=== PATIENT | male | born 1955 | race Caucasian/White ===

== ENCOUNTER 2020-04-07 00:41 | Outpatient (CLI) | payer MEDICARE, OTHER, SELFPAY ==
[2020-04-07 16:46] LABS: SARS-CoV-2 RNA PCR Negative
== END 2020-04-07 00:42 | disposition home or self-care (01) ==
LOC: ANHCOVIDDT 00:41
PROVIDERS: PCP Family Medicine; Visit Provider Internal Medicine Gastroenterology
DX: Z01.818 Encounter for other preprocedural examination (principal); Z11.59 Encounter for screening for other viral diseases; R19.5 Other fecal abnormalities
CPT/HCPCS: 87635; C9803; U0003

== ENCOUNTER 2020-04-10 01:05 | Day surgery (SDC) | payer MEDICARE, OTHER, SELFPAY ==
[2020-04-03 13:06] VITALS: BMI 22.4
[2020-04-10] MEDS: LACTATED RINGERS 1,000 ML 150 ML IV CONT (07:39)
[2020-04-10 07:40] VITALS: BMI 22.6
[2020-04-10 07:42] VITALS: BP 109/68; PULSE 77; RESP 16; TEMP 37; O2SAT 97
--- NOTE | 2020-04-10 07:58 | WPDANESEPPF ---
Anes - Initial Pre Proc Eval Procedure: Operation Date: 04/10/20 08:30 Proposed Procedures p Screening Colonoscopy - Nadir Little MD Date/Time: 04/10/20 07:58 Surgeon: Nadir Little MD Pre Op Diagnosis: Neoplasm Screening Patient Data Age: 64 Gender: M Height: 5 ft 7 in Weight: 65.5 kg Last Vital Signs Temp 37.0 C 04/10/20 07:42 Pulse 77 04/10/20 07:42 Resp 16 04/10/20 07:42 BP 109/68 04/10/20 07:42 Pulse Ox 97 04/10/20 07:42 Allergies Allergy/AdvReac Type Severity Reaction Status Date / Time No Known Allergies Allergy Unknown Verified 04/10/20 07:23 Home Medications Medication Instructions Recorded Confirmed Type lithium carbonate 300 mg capsule 300 mg PO BID 01/27/20 04/10/20 History lamotrigine 200 mg PO DAILY 04/03/20 04/10/20 History naproxen 500 mg PO BID 04/03/20 04/10/20 History Patient hx anesthesia problems: none Family hx anesthesia problems: none PMFSH Past Medical History Medical History Afib Alcoholism Bipolar depression Hyperthyroidism Family History Family History Other Cerebrovascular accident Family history of obesity Social History Social History Smoking status: Never smoker Second hand tobacco smoke exposure: Yes Alcohol intake: current Anes - Eval Final PreProcedure Day of Procedure 04/10/20 07:58 Informed Consent: The patient's anesthetic plan and its attendant risks and benefits were discussed with the patient/family/POA. Questions were solicited and answers provided to the satisfaction of the patient/family/POA.
--- NOTE | 2020-04-10 08:26 | PM.HPGS ---
History of Present Illness History of Present Illness Consent: Risks, benefits, and alternatives have been discussed and questions answered. Patient agrees to proceed with procedure. Chief complaint: Neoplasm Screening Narrative: Mychal Mckeon is a 64 year old male with positive cologuard, never had a colonoscopy Review of Systems Constitutional: Constitutional: Denies headache(s) and Denies weakness Eyes: Eyes: Denies blurry vision ENT: Reports Normal hearing present, Denies headache(s) and Denies neck pain Cardiovascular: Cardiovascular: Denies chest pain and Denies dyspnea Respiratory: Respiratory: Denies dyspnea Gastrointestinal: Gastrointestinal: Reports no additional gastrointestinal complaints Genitourinary: Genitourinary: Denies dysuria Musculoskeletal: Musculoskeletal: Denies neck pain Integumentary/Breasts: Skin/Breast: Denies dry skin Neurologic: Reports Normal hearing present, Denies headache(s) and Denies weakness Psychiatric: Psychiatric: Denies anxiety Endocrine: Endocrine: Denies change in body appearance Hematologic/Lymphatic: Hematologic/Lymphatic: Denies easy bleeding Allergic/Immunologic: Allergic/Immunologic: Denies urticaria PMFSH Past Medical History Medical History Afib Alcoholism Bipolar depression Hyperthyroidism Family History Family History Other Cerebrovascular accident Family history of obesity Social History Social History Smoking status: Never smoker Second hand tobacco smoke exposure: Yes Alcohol intake: current Meds Home Medications and Allergies Home Medications Medication Instructions Recorded Confirmed Type lithium carbonate 300 mg capsule 300 mg PO BID 01/27/20 04/10/20 History lamotrigine 200 mg PO DAILY 04/03/20 04/10/20 History naproxen 500 mg PO BID 04/03/20 04/10/20 History Allergies Allergy/AdvReac Type Severity Reaction Status Date / Time No Known Allergies Allergy Unknown Verified 04/10/20 07:23 Vital Signs Vital Signs - 24 hr 04/10/20 07:42 Temperature 98.6 F Pulse Rate 77 Respiratory Rate 16 Blood Pressure 109/68 Pulse Oximetry 97 Exam Const: General: comfortable and no acute distress HENMT: General nose exam: Normal nares present Eyes: General: appearance normal, both eyes and all related structures Neck: Neck: no JVD Resp: Auscultation: clear to auscultation bilaterally Cardio: Rate: regular rate Rhythm: regular rhythm GI: Inspection: non-distended GI Palp: Yes Soft to palpation Skin: General skin exam: normal color Neuro: General: gait normal Speech: normal speech Extrem: General: normal to inspection Psych: Mental Status: mental status grossly normal Assessment and Plan Assessment and plan (1) Positive colorectal cancer screening using Cologuard test: Code(s): R19.5 - Other fecal abnormalities Status: Acute Assessment and Plan: will proceed with colonoscopy (2) Afib: Code(s): I48.91 - Unspecified atrial fibrillation Status: Acute
[2020-04-10 09:05] VITALS: BP 87/52; PULSE 66; RESP 9; O2SAT 95
[2020-04-10 09:15] VITALS: BP 90/54; PULSE 61; RESP 16; O2SAT 99
[2020-04-10 09:25] VITALS: BP 95/53; PULSE 72; RESP 12; O2SAT 99
== END 2020-04-10 09:45 | disposition home or self-care (01) ==
PROVIDERS: PCP Family Medicine; Visit Provider Internal Medicine Gastroenterology
PROC: 0DJD8ZZ Inspection of Lower Intestinal Tract, Via Natural or Artificial Opening Endoscopic (ICD-10-PCS; CPT 45378; principal; 2020-04-10 08:30)
DX: R19.5 Other fecal abnormalities (principal); K63.5 Polyp of colon; K57.30 Diverticulosis of large intestine without perforation or abscess without bleeding; K64.8 Other hemorrhoids; I48.91 Unspecified atrial fibrillation; E05.90 Thyrotoxicosis, unspecified without thyrotoxic crisis or storm
CPT/HCPCS: 45385; 45381; 88305; 88342; J2001; J2704; J7120

== ENCOUNTER 2020-04-26 15:08 | Outpatient (CLI) | payer MEDICARE, OTHER, SELFPAY ==
--- NOTE | ~2020-04-26 | US_ITS ---
EXAMINATION: US thyroid DATE: 04/26/2020 15:47 INDICATION: Nontoxic goiter. TECHNIQUE: Multiple ultrasound images of the thyroid were obtained. COMPARISON: None. FINDINGS: The right thyroid lobe measures 3.8 x 2.0 x 2.1 cm. The left thyroid lobe measures 4.5 x 1.5 x 1.9 c m. There is normal echotexture and echogenicity throughout the thyroid gland. No discrete nodules id entified. Normal vascular flow is present. IMPRESSION: 1. Normal thyroid. Reviewed, dictated and finalized at location A. IMPRESSION: 1. Normal thyroid.
== END 2020-04-26 15:09 | disposition home or self-care (01) ==
PROVIDERS: PCP Family Medicine; Visit Provider Internal Medicine Endocrinology, Diabetes & Metabolism
DX: E04.9 Nontoxic goiter, unspecified (principal)
CPT/HCPCS: 76536

== ENCOUNTER 2020-09-11 08:07 | Emergency (ER) | payer MEDICARE, OTHER, SELFPAY ==
--- NOTE | ~2020-09-11 | XR_ITS ---
EXAMINATION: XR abdomen/kub 1V DATE: 09/11/2020 08:51 INDICATION: Abdominal pain. Nausea and vomiting. TECHNIQUE: A supine view of the abdomen was obtained. COMPARISON: None. FINDINGS: There are no dilated loops of bowel. There is a paucity of stool in the colon. Calcificatio ns in the pelvis are likely phleboliths. There is a pacer wire in right ventricle of the heart. IMPRESSION: 1. Normal bowel gas pattern. Reviewed, dictated and finalized at location A.
[2020-09-11 08:14] VITALS: BP 140/81; PULSE 115; RESP 16; TEMP 36.9; O2SAT 100
--- NOTE | 2020-09-11 08:19 | ED.GENADULT ---
HPI - General Adult General Chief complaint: Nausea/Vomiting/Diarrhea Stated complaint: abdominal pain/vomiting Time Seen by Provider: 09/11/20 08:19 Source: patient and RN notes reviewed Mode of arrival: ambulatory Limitations: no limitations History of Present Illness HPI narrative: 65-year-old male presents with complaints of diffused abdomen pain with nausea and vomiting for the past 2 days. Mychal says he started vomiting Thursday09/08/20 morning after eating a donut and drinking day old apple cider that was left out, 3-4 emesis daily. Last emesis episode on 09/10/20 at 20:00 all episodes without blood. No treatment. Says he has decreased his po intake because he does not want to vomit. No significant genital pain. No genital discharge. No concerns for STDs. No fever or chills. No diarrhea. No flank pain. Exacerbating factors consist of having eating and drinking. Denies dysuria, hematuria, and genital bleeding. No blood in stool or constipation. Last BM was 1-2 days ago and normal. Urine output with in normal limits. The patient reports he have not been diagnosed with COVID-19. The patient reports he is not waiting for the results of a COVID-19 lab test. The patient reports he do not have weakness or fatigue. The patient reports he do not have a new or worsening cough or shortness of breath. Denies chest pain. The patient reports he do not have any rhinorrhea, congestion, loss of taste, sore throat, and diarrhea. Denies recent traveling. Denies concerns for COVID-19 or exposures been home with limited outdoor exposure except for essential household needs and return home. At this time, patient is not suspected of having COVID-19. Some parts of this dictation were generated by voice recognition software and may contain typographical and/or grammatical inaccuracies. Related Data Home Medications Medication Instructions Recorded Confirmed lithium carbonate 300 mg capsule 300 mg PO BID 01/27/20 08/22/20 lamotrigine 200 mg PO DAILY 04/03/20 08/22/20 Allergies Allergy/AdvReac Type Severity Reaction Status Date / Time No Known Allergies Allergy Unknown Verified 08/22/20 14:45 Review of Systems Review of Systems: Narrative: CONSTITUTIONAL: Denies fever, chills, sweats. EYES: Denies visual changes, redness, discharge. ENT: Denies rhinorrhea, congestion, sore throat, otalgia. CARDIOVASCULAR: Denies chest pain, palpitations, edema. RESPIRATORY: Denies dyspnea, wheezing, cough. GASTROINTESTINAL: Complains of diffused abdomen pain, vomiting, nausea, and decrease appetite. Denies diarrhea. GENITOURINARY: Denies dysuria, hematuria, abnormal discharge. SKIN: Denies rash or itching. MUSCULOSKELETAL: Denies acute back pain, joint pain, or myalgia. NEUROLOGIC: Denies numbness or focal weakness. PSYCHIATRIC: Denies anxiety or depression. All systems reviewed & are unremarkable except as noted in HPI and below. 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 There is relevant patient's past medical history pertinent to the
[2020-09-11] MEDS: ONDANSETRON INJ 4 MG/2 ML VIAL IM (08:42)
--- NOTE | 2020-09-11 09:27 | PC.NURSE ---
Pulse 84 at discharged.
== END 2020-09-11 09:26 | disposition home or self-care (01) ==
PROVIDERS: Emergency Provider Nurse Practitioner Family; PCP Family Medicine
DX: K52.9 Noninfective gastroenteritis and colitis, unspecified (principal); I48.91 Unspecified atrial fibrillation; F31.9 Bipolar disorder, unspecified; E05.90 Thyrotoxicosis, unspecified without thyrotoxic crisis or storm; Z95.0 Presence of cardiac pacemaker
CPT/HCPCS: 74018; 81003; 96372; 99213; G0463; J2405

== ENCOUNTER → 2020-10-02 10:32 | Outpatient (CLI) | payer MEDICARE, OTHER, SELFPAY ==
--- NOTE | ~2020-10-02 | XR_ITS ---
EXAMINATION: XR lumbar spine 2-3V EXAM DATE: 10/02/2020 11:02 INDICATION: M54.9 - Dorsalgia, unspecified, nkt . TECHNIQUE: Lumber spine frontal, lateral, lateral L5-S1 projections for interpretation. There is no prior study for comparison. FINDINGS: There is mild to moderate lumbar dextroscoliosis, mild to moderate disc disease L3-S1, mild at the up per lumbar levels. The vertebral bodies are aligned in the AP dimension. Mild to moderate lumbar face t arthropathy. Sacrum, sacroiliac joints, sacral arcuate lines are intact. Paraspinal soft tissue is unremarkable. Cardiac pacemaker lead. IMPRESSION: 1. Mild to moderate lumbar dextroscoliosis. 2. Mild to moderate spondylosis. Reviewed, dictated and finalized at location A. NESS TRANSFORMATION MANAGER
== END ==
PROVIDERS: PCP Family Medicine; Visit Provider Physician Assistant
DX: M47.896 Other spondylosis, lumbar region (principal)
CPT/HCPCS: 72100

== ENCOUNTER 2020-10-31 09:36 | Emergency (ER) | payer MEDICARE, OTHER, SELFPAY ==
--- NOTE | ~2020-10-31 | XR_ITS ---
EXAMINATION: XR chest 1V DATE: 10/31/2020 10:50 INDICATION: Loss of balance. TECHNIQUE: A single frontal view of the chest was obtained. COMPARISON: Chest 2 views 04/29/2014 FINDINGS: Calcified pulmonary nodules are consistent with old granulomatous disease. No pleural effus ion or pneumothorax. The heart size is normal. There is a left chest wall pacer with leads in the rig ht atrium and right ventricle. IMPRESSION: 1. No acute cardiopulmonary disease. Reviewed, dictated and finalized at location A. SERVER
--- NOTE | ~2020-10-31 | CT_ITS ---
EXAMINATION: CT cervical spine wo con DATE: 10/31/2020 10:46 INDICATION: Fall. Head and neck injury. TECHNIQUE: Computed tomography (CT) of the cervical spine was performed without intravenous contrast. Automated exposure control and iterative reconstruction technique were employed. Exam dose: 281.85 mGy-cm total exam DLP. COMPARISON: 07/05/2018 cervical spine FINDINGS: C1 and C2 are normally aligned and the odontoid process is intact. No fracture or dislocati on or locked facet or prevertebral soft tissue swelling. There is minimal anterolisthesis at C4-5. There is moderately severe degenerative disc disease at C4- 5, C5-C6. There is moderate degenerative disc disease at C6-7. There is degenerative change at the apophyseal joints throughout most of the cervical spine as well a s uncovertebral joint spurring, particularly at C4-5 and C5-6 bilaterally.. IMPRESSION: Degenerative changes; no fracture or dislocation Reviewed, dictated and finalized at Location A. Reviewed, dictated and finalized at location B. NG CAGE CASHIER
--- NOTE | ~2020-10-31 | CT_ITS ---
EXAMINATION: CT brain wo con DATE: 10/31/2020 10:46 INDICATION: Fall. Head injury. TECHNIQUE: Computed tomography (CT) of the head was performed without intravenous contrast. The mA wa s adjusted according to patient size. Iterative reconstruction technique was employed. Exam dose: 60 5.33 mGy-cm total exam DLP. COMPARISON: 07/19/2018 CT brain FINDINGS: Bilateral carotid siphon internal carotid artery calcification. There is nonspecific dimini shed attenuation of the cerebral white matter, likely due to chronic small vessel ischemic changes. No intracranial mass lesion or hemorrhage or cerebrovascular accident, midline shift or mass effect i s detected. No subdural or epidural hematoma. No fracture or bone destruction of the cranial vault. Included paranasal sinuses and mastoid air cell s are unremarkable. IMPRESSION: Cerebral atherosclerosis and chronic small vessel ischemic changes of the cerebral white matter No acute intracranial finding or skull fracture Reviewed, dictated and finalized at Location A. Reviewed, dictated and finalized at location B. SPORTATION COORDINATOR
[2020-10-31 10:00] VITALS: BP 112/69; PULSE 66; RESP 18; O2SAT 96
[2020-10-31 10:08] VITALS: BP 142/73; PULSE 107; RESP 18; TEMP 36.5; O2SAT 100
[2020-10-31 10:30] VITALS: BP 108/73; PULSE 59; RESP 18; O2SAT 97
[2020-10-31 11:00] VITALS: BP 114/86; PULSE 65; RESP 18; O2SAT 97
[2020-10-31 11:07] LABS: Basophils Absolute Auto 0.1 K/mm3 (0.0-0.1); Basophils Percent Auto 0.6 % (0.2-1.2); Eosinophils Absolute Auto 0.3 K/mm3 (0-0.3); Eosinophils Percent Auto 3.8 % (0-4.4); Hematocrit 40.1 % (42.0-52.0); Hemoglobin 12.9 g/dL (14.0-18.0); Immature Granulocyte Absolute 0.02 K/mm3 (0.00-0.031); Immature Granulocyte Percent A 0.3 % (0-0.5); Lymphocytes Absolute Auto 0.95 K/mm3 (0.9-3.2); Lymphocytes Percent Auto 11.9 % (18.3-44.2); Mean Corpuscular HGB Conc 32.2 g/dl (32-36); Mean Corpuscular Hemoglobin 29.5 pg (26-34); Mean Corpuscular Volume 91.6 fl (80-100); Mean Platelet Volume 10.4 fl (7.4-10.4); Monocytes Absolute Auto 0.5 K/mm3 (0.1-0.6); Monocytes Percent Auto 5.6 % (2.6-8.5); Neutrophils Absolute Auto 6.2 K/mm3 (1.3-6.7); Neutrophils Percent Auto 77.8 % (45.5-73.1); Platelet Count Result 272 k/mm3 (150-375); Red Blood Count 4.38 M/mm3 (4.6-6.20); Red Cell Distribution Width 13.3 % (11.5-14.5)
[2020-10-31 11:22] LABS: Alanine Aminotransferase 17 U/L (4-50); Alkaline Phosphatase 73 U/L (38-126); Anion Gap 4 mmol/L (8-16); Aspartate Amino Transferase 21 U/L (17-59); Bilirubin,Total 0.4 mg/dL (0.2-1.3); Blood Urea Nitrogen 18 mg/dL (9-20); Calcium 9.4 mg/dL (8.4-10.2); Carbon Dioxide 31 mmol/L (22-30); Chloride 104 mmol/L (98-107); Estimated CRCL calculation 65 ml/min; Estimated Glomerular Filt Rate > 60; Glucose 100 mg/dL (75-110); Sodium 139 mmol/L (137-145)
--- NOTE | 2020-10-31 11:31 | PC.NURSE ---
Addendum entered by Gianluca Carvajal RN 10/31/20 11:32: Pt and told to call for assistance prior to getting out of bed. Original Note: Pt stands to void. Per Tyler, maintenance service technician, pt was unsteady on his feet when he got out of bed.
[2020-10-31 11:37] LABS: Add Urine Microscopic? NO; Appearance Urine Clear (Clear); Bilirubin Urine Negative (Negative); Blood Urine Negative (Negative); Color Urine Straw (Yellow); Glucose Urine UA Negative (Negative); Ketones Urine Negative (Negative); Leukocyte Esterase Ur Negative LEU/UL (Negative); Nitrate Urine Negative (Negative); Protein Urine Negative (Negative); RBC Urine 0-2 /hpf (0-2); Specific Grav Ur 1.012 (1.001-1.035); Urobilinogen Urine Negative mg/dL (<2.0); WBC Urine 0-3 /hpf
[2020-10-31 11:40] VITALS: BP 107/71; PULSE 61; RESP 18; O2SAT 99
[2020-10-31 12:20] VITALS: BP 117/69; PULSE 61; RESP 16; O2SAT 99
--- NOTE | 2020-10-31 13:01 | ED.GENADULT ---
HPI - General Adult General Chief complaint: Unspecified Stated complaint: head injury/fall Time Seen by Provider: 10/31/20 09:58 Source: patient and family () Mode of arrival: ambulatory Limitations: no limitations History of Present Illness HPI narrative: Patient with history of right-sided vestibular neuroma resents with chief complaint of lacerations to the right side of his head after falling and hitting it on the cement. Patient states that he has had balance issues for many years and a year and a half ago the vestibular neuroma was gamma ray but over the past 2 months or so he has noticed increased balance issues especially when he plays basketball. Patient states that he has an appointment with his neurologist on November 19 but his became concerned after he fell today and wanted him evaluated in the emergency department. He denies any loss of consciousness, changes in vision or hearing, headache, nausea, vomiting, unilateral weakness or speech changes. He states that he has not contacted his primary care or neurologist to inform them that his balance has worsened over the past 2 or so months. Patient states that his primary care is Dr. Fina Abbott however he cannot recall the name of his neurologist at this time. Related Data Home Medications Medication Instructions Recorded Confirmed lamotrigine 200 mg PO DAILY 04/03/20 08/22/20 lithium carbonate 300 mg capsule 600 mg PO BID cap 09/14/20 Allergies Allergy/AdvReac Type Severity Reaction Status Date / Time No Known Allergies Allergy Unknown Verified 09/14/20 15:51 Review of Systems Review of Systems: Narrative: CONSTITUTIONAL: Denies fever, chills, or sweats. EYES: Denies visual changes, redness, or discharge. ENT: Denies rhinorrhea, congestion, sore throat, or otalgia. CARDIOVASCULAR: Denies chest pain, palpitations, or edema. RESPIRATORY: Denies cough or dyspnea. GASTROINTESTINAL: Denies abdominal pain, nausea, vomiting, or diarrhea. GENITOURINARY: Denies dysuria or hematuria. SKIN: Reports laceration and abrasions denies rash or itching. MUSCULOSKELETAL: Denies back pain, joint pain, or myalgia. NEUROLOGIC: Reports balance issues denies headache, numbness, dizziness, or weakness. PSYCHIATRIC: Denies anxiety or depression. 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 HEAD: Normocephalic, there is 2-1/2 cm well approximated laceration to the right side of face lateral to the eye. The eye is not involved. There are also surrounding abrasions. There is no active bleeding at this time. EYES: PERRLA and EOMI. ENT: No hemotympanum. NECK: Supple. No adenopathy or masses. Range of motion intact. No vertebral step-offs palpated. CHEST: Clear to auscultation. No respiratory distress. No wheezes rales or rhonchi HEART: Regular rate and rhythm. No murmur heard. Normal peripheral pulses. EXTREMITIES: Senior Game Designer strength intact bilaterally. Patient able to follow commands and move upper and lower extremities as inst
== END 2020-10-31 13:19 | disposition home or self-care (01) ==
PROVIDERS: Physician Assistant; Emergency Provider Emergency Medicine; PCP Family Medicine
DX: R42 Dizziness and giddiness (principal); I48.91 Unspecified atrial fibrillation; F31.9 Bipolar disorder, unspecified; E05.90 Thyrotoxicosis, unspecified without thyrotoxic crisis or storm; Z95.0 Presence of cardiac pacemaker
CPT/HCPCS: 36415; 70450; 71045; 72125; 80053; 81003; 85025; 99284

== ENCOUNTER 2020-11-27 10:39 | Outpatient (CLI) | payer MEDICARE, SELFPAY ==
--- NOTE | ~2020-11-27 | US_ITS ---
EXAMINATION: US carotid duplex BI DATE: 11/27/2020 11:08 INDICATION: Cerebrovascular accident. TECHNIQUE: Grayscale, color Doppler, and pulsed Doppler images of the cervical carotid arteries were obtained. The degree of vessel stenosis is placed in one of the following categories: normal, <50%, 5 0-69%, >=70% but less than near-occlusion, near-occlusion, or total occlusion. Note that percent sten osis relative to normal distal artery lumen diameter is indirectly measured from velocity measurement s as described by Michael, et al. Radiology 2003; [id number]. COMPARISON: None. FINDINGS: RIGHT: The right common carotid artery (CCA) peak systolic velocity (PSV) is 79 cm/s. The right internal car otid artery (ICA) PSV is 62 cm/s. The right ICA end-diastolic velocity (EDV) is 24 cm/s. The right IC A/CCA PSV ratio is 0.8. Grayscale and color Doppler images yield an estimate of <50% diameter reducti on from plaque in the ICA. There is antegrade flow in the right vertebral artery. LEFT: The left CCA PSV is 94 cm/s. The left ICA PSV is 73 cm/s. The left ICA EDV is 26 cm/s. The left ICA/C CA PSV ratio is 0.8. Grayscale and color Doppler images yield an estimate of <50% diameter reduction from plaque in the ICA. There is antegrade flow in the left vertebral artery. IMPRESSION: 1. <50% stenosis in the right internal carotid artery. 2. <50% stenosis in the left internal carotid artery. Reviewed, dictated and finalized at location A. CLIENT BANKING SERVICES CLERK
== END 2020-11-27 10:40 | disposition home or self-care (01) ==
PROVIDERS: PCP Family Medicine; Visit Provider Family Medicine
DX: I63.9 Cerebral infarction, unspecified (principal); I65.23 Occlusion and stenosis of bilateral carotid arteries
CPT/HCPCS: 93880

== ENCOUNTER 2022-02-22 17:08 | Emergency (ER) | payer MEDICARE, OTHER, SELFPAY ==
--- NOTE | ~2022-02-22 | XR_ITS ---
EXAMINATION: XR chest 2V Exam Date/Time: 02/22/2022 17:55 CDT CLINICAL HISTORY: FATIGUE, SOB Comparison: None available RESULT: Lines, tubes, and devices: Left chest pacer, with intact leads. Lungs and pleura: Clear. Cardiomediastinal silhouette: Stable cardiomediastinal silhouette. Other: No acute osseous or upper abdominal finding. IMPRESSION: No acute cardiopulmonary process. Reviewed, dictated and finalized at location K.
[2022-02-22 17:13] VITALS: BP 119/72; PULSE 74; RESP 16; TEMP 36.6; O2SAT 100
[2022-02-22 17:19] VITALS: BP 119/72; PULSE 74; RESP 16; TEMP 36.6; O2SAT 100
--- NOTE | 2022-02-22 17:38 | ECG_ITS ---
Measurements Intervals [place] Rate: 70 P: IN: 0 QRS: -74 QRSD: 193 T: 98 QT: 487 QTc: 529 Interpretive Statements ELECTRONIC VENTRICULAR PACEMAKER ABNORMAL RHYTHM ECG NO PREVIOUS ECG AVAILABLE FOR COMPARISON Electronically Signed On 02-23-2022 6:55:42 CDT by Mandie Clark M.D.
--- NOTE | 2022-02-22 17:39 | ED.GENADULT ---
HPI - General Adult General Chief complaint: Shortness of Breath/Dyspnea Stated complaint: WEAKNESS Source: patient Mode of arrival: ambulatory Limitations: no limitations History of Present Illness HPI narrative: Patient presents for evaluation of fatigue and dyspnea on exertion. He states symptoms present for the last 4 days. He denies SOB at rest. He denies any fever, chills, nausea, vomiting, cough or chest pain. He has an underlying hx of hyperlipidemia and bipolar disorder. He states he had a pacemaker placed back in 2013 and current symptoms seem similar to symptoms he experienced prior to have pacemaker placed. He lives with his at home alone but they do not share a bed to know if he has apneic spells. His states that he does snore and that there was concern for sleep apnea in the past around the time that he had his pacemaker placed. Pt states it feels like someone is scratching his throat with a toilet bowl brush. He denies sore throat per se but does endorse a scratchy feeling. His states that he was taking morning after afternoon naps daily for about one week recently. In the past 24-48 hrs he has been taking one nap per day. No recent changes to any of his medication doses. He states his mood is stable on lamictal and lithium. Related Data Home Medications Medication Instructions Recorded Confirmed lamotrigine 200 mg PO DAILY 04/03/20 02/22/22 lithium carbonate 300 mg capsule 600 mg PO BID cap 09/14/20 02/22/22 atorvastatin 20 mg tablet 20 mg PO DAILY 11/12/20 02/22/22 aspirin 325 mg tablet 325 mg PO DAILY 11/26/20 02/22/22 Allergies Allergy/AdvReac Type Severity Reaction Status Date / Time No Known Allergies Allergy Unknown Verified 02/22/22 17:16 Review of Systems Review of Systems: CONSTITUTIONAL: Reports fatigue. Denies fever, chills, or sweats. EYES: Denies visual changes, redness, or discharge. ENT: Reports scratchy sensation in his throat. Denies rhinorrhea, congestion, or otalgia. CARDIOVASCULAR: Denies chest pain, palpitations, or edema. RESPIRATORY: Reports exertional dyspnea. Denies cough or dyspnea at rest. GASTROINTESTINAL: Denies abdominal pain, nausea, vomiting, or diarrhea. GENITOURINARY: Denies dysuria or hematuria. SKIN: Denies rash or itching. MUSCULOSKELETAL: Denies back pain, joint pain, or myalgia. NEUROLOGIC: Denies headache, numbness, dizziness, or weakness. PSYCHIATRIC: Denies anxiety or depression. 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 Positive colorectal cancer screening using Cologuard test Surgical History Surgical History H/O knee surgery H/O ventral hernia repair History of arthroplasty of left knee History of arthroscopic knee surgery bilateral History of cardiac catheterization Family History Family History Other Cerebrovascular accident Family history of obesity Social History Social History Second hand tobacco smoke exposure: Yes Alcohol intake: never Substance use: never Living arrangements: with family Gender identity (if verbalized by the patient): Male Sexual Orientation (if Verbalized by the Patient): Straight or Heterosexual Spiritual care concerns: No Exam Narrative: GENERAL: Well-appearing, well-nourished, and in no acute distress. HEAD: Normocephalic, atraumatic. EYES: PERRLA and EOMI. ENT: Nares clear, no rhinorrhea or epistaxis. Mucous membranes moist. Oropharynx without tonsillar hypertrophy exudate or other lesions. Bilateral TMs pearly olson nonbulging NECK: Supple. No adenopa
[2022-02-22 17:49] LABS: Glucose Point of Care 96 mg/dl (65-105)
== END 2022-02-22 18:24 | disposition home or self-care (01) ==
PROVIDERS: Emergency Provider Nurse Practitioner; PCP Family Medicine
DX: J02.0 Streptococcal pharyngitis (principal); I48.91 Unspecified atrial fibrillation; F31.9 Bipolar disorder, unspecified; Z86.73 Personal history of transient ischemic attack (TIA), and cerebral infarction without residual deficits; E05.90 Thyrotoxicosis, unspecified without thyrotoxic crisis or storm; Z95.0 Presence of cardiac pacemaker
CPT/HCPCS: 36416; 71046; 82948; 86308; 87880; 93005; 99213; G0463

== ENCOUNTER 2022-03-03 00:39 | Day surgery (SDC) | payer MEDICARE, OTHER, SELFPAY ==
[2022-02-28 14:47] VITALS: BMI 23.4
[2022-03-03 08:53] VITALS: BP 120/71; PULSE 68; RESP 15; O2SAT 99; BMI 23.3
[2022-03-03 08:57] LABS: Basophils Absolute Auto 0.1 K/mm3 (0.0-0.1); Basophils Percent Auto 1.3 % (0.2-1.2); Eosinophils Absolute Auto 0.4 K/mm3 (0-0.3); Hemoglobin 13.4 g/dL (14.0-18.0); Immature Granulocyte Absolute 0.03 K/mm3 (0.00-0.031); Immature Granulocyte Percent A 0.3 % (0-0.5); Lymphocytes Absolute Auto 0.91 K/mm3 (0.9-3.2); Lymphocytes Percent Auto 10.4 % (18.3-44.2); Mean Corpuscular HGB Conc 31.2 g/dl (32-36); Mean Corpuscular Volume 96.4 fl (80-100); Monocytes Absolute Auto 0.6 K/mm3 (0.1-0.6); Neutrophils Absolute Auto 6.7 K/mm3 (1.3-6.7); Platelet Count Result 271 k/mm3 (150-375); Red Blood Count 4.46 M/mm3 (4.6-6.20); White Blood Count 8.8 K/mm3 (4.5-10.0)
[2022-03-03 09:07] LABS: INR 1.1; Prothrombin Time 13.6 Seconds (11.1-14.7)
[2022-03-03 09:11] LABS: Anion Gap 5 mmol/L (8-16); Blood Urea Nitrogen 23 mg/dL (9-20); Calcium 9.5 mg/dL (8.4-10.2); Carbon Dioxide 30 mmol/L (22-30); Chloride 104 mmol/L (98-107); Estimated CRCL calculation 53 ml/min; Estimated Glomerular Filt Rate > 60; Glucose 89 mg/dL (65-110); Potassium 4.9 mmol/L (3.4-5.0); Sodium 139 mmol/L (137-145)
--- NOTE | 2022-03-03 10:21 | WPDMODSED ---
Moderate Sedation Note-Pt Data Patient Data Diagnosis: permanently implanted pacemaker at [facility] Present Complaint: generalized fatigue and weakness Procedure to be performed/Plan: pacemaker generator change Allergies Allergy/AdvReac Type Severity Reaction Status Date / Time No Known Allergies Allergy Unknown Verified 03/03/22 08:51 Home Medications Medication Instructions Recorded Confirmed Type lamotrigine 200 mg PO DAILY 04/03/20 03/03/22 History lithium carbonate 300 mg capsule 600 mg PO BID cap 09/14/20 03/03/22 History atorvastatin 20 mg tablet 20 mg PO DAILY 11/12/20 03/03/22 History aspirin 325 mg tablet 325 mg PO DAILY 11/26/20 03/03/22 History Sedation/Anesthesia: No previous sedation/anesthesia problems (including family history). [facility] Past Medical History Medical History Afib Alcoholism Bipolar depression Cardiomyopathy CVA (cerebrovascular accident) Hernia Hyperthyroidism Levoscoliosis Normal colonoscopy (~03/2020) 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 Positive colorectal cancer screening using Cologuard test Surgical History Surgical History H/O knee surgery H/O ventral hernia repair History of arthroplasty of left knee History of arthroscopic knee surgery bilateral History of cardiac catheterization Family History Family History Other Cerebrovascular accident Family history of obesity Social History Social History Smoking status: Never smoker Second hand tobacco smoke exposure: Yes Alcohol intake: never Substance use: never Substance use type: does not use Living arrangements: with family Gender identity (if verbalized by the patient): Male Sexual Orientation (if Verbalized by the Patient): Straight or Heterosexual Spiritual care concerns: No Mod Sed Physical Exam Physical Exam Pre Procedural Exam: Normal: Appearance, Neck, Throat, Airway, Lungs, Heart Size, Heart Rate, Heart Rhythm and Extremities Hours since solid foods: 12 Hours since liquid intake: 12 Mallampati Classification: class II Internal Medicine - PN: Obj Da Vital Signs Vital Signs: Vital Signs - 24 hr 03/03/22 08:53 Pulse Rate 68 Respiratory Rate 15 Blood Pressure 120/71 Pulse Oximetry 99 Labs CBC & Chem 7: 03/03/22 08:44 03/03/22 08:44 Labs: Laboratory Results - last 24 hr 03/03/22 03/03/22 03/03/22 08:44 08:44 08:44 WBC 8.8 RBC 4.46 L Hgb 13.4 L Hct 43.0 MCV 96.4 MCH 30.0 MCHC 31.2 L RDW 13.0 Plt Count 271 MPV 11.0 H Immature Gran % (Auto) 0.3 Neut % (Auto) 76.0 H Lymph % (Auto) 10.4 L Blaine % (Auto) 7.0 Eos % (Auto) 5.0 H Baso % (Auto) 1.3 H Lymph # (Auto) 0.91 Blaine # (Auto) 0.6 Eos # (Auto) 0.4 H Baso # (Auto) 0.1 Abs Immat Gran (auto) 0.03 Absolute Neuts (auto) 6.7 Absolute Nucleated RBC 0.0 Nucleated RBC % 0.0 PT 13.6 INR 1.1 Sodium 139 Potassium 4.9 Chloride 104 Carbon Dioxide 30 Anion Gap 5 L BUN 23 H Creatinine 1.10 Estim Creat Clear Calc 53 Estimated GFR > 60 Glucose 89 Calcium 9.5 ASA Classification/Sedation ASA Classification/Sedation ASA Class: II Emergent: No Risks: Risks, benefits and alternatives explained and patient/family accepted plan for sedation. Patient re-evaluated immediately prior to sedation.
--- NOTE | 2022-03-03 10:43 | SUR.OPER ---
LT chest ppm explanted and new generator placed. SN [id number]
--- NOTE | 2022-03-03 11:07 | WPDCARDPROC ---
Cardiac Cath Procedure Note Date of procedure:: 03/03/22 Performing physician:: Cody Jerome MD Indication:: permanently implanted dual-chamber pacemaker at [facility] Brief clinical history:: this is a 66-year-old patient with a history of sick sinus syndrome and a prior history of paroxysmal atrial fib. He has a chronically implanted dual-chamber pacemaker device that is at [facility] and was admitted today electively for generator change. Procedure Procedure performed:: Explant depleted pulse generator implant new dual-chamber pulse generator Sedation/Medication given:: fentanyl 25 mg Versed 2 mg case start time 10:28 a.m. case end time 11:03 a.m. Access site:: chronically implanted pacemaker pocket in the left subclavian region Estimated blood loss:: 10 cc Procedure note:: the patient was brought to the cardiac catheterization lab in the postabsorptive state where the left anterior chest wall was prepped and draped in the usual sterile fashion over the site of the palpable chronically implanted pacemaker device. The patient received 1% lidocaine infiltrated above this region for local anesthesia. Using the PlasmaBlade an incision was then made in the skin and also the subcutaneous tissue and the fibrous capsule. Electrocautery was used to provide cutaneous hemostasis. The pacemaker generator in the attached leads were removed from the pocket and found to be visually intact and unremarkable in appearance. The pocket was irrigated with antibiotic infused saline. Following this the pacemaker was disconnected from the chronically implanted leads using the torque wrench. The leads were implant to the new generator and the assembly was placed back into the pocket. The pocket was then closed in layers using 3-0 Vicryl in an interrupted fashion with the subcutaneous tissue and 4-0 Vicryl in a running subcuticular fashion for the skin. The wound was dressed with an Aquacel dressing and postop antibiotics and analgesics were ordered. The procedure was well tolerated. Findings:: The explanted device is a Medtronic dual-chamber pacemaker [id number], serial number [id number]. originally implanted 12/27/2013. The new generator is a Medtronic dual-chamber pacemaker [id number], serial [id number] . device is programmed AAIR<> DDDR mode lower rate limit 60 upper rate limit 130 av delay 180/150 millisecond. The atrial lead is a chronically implanted lead [id number] serial [id number]. P waves are sensed at 4.3 mV threshold 1.0 volts at 0.4 millisecond pacing impedance 386 Ohms. The ventricular lead is a chronically implanted lead model [id number], serial [id number]. R waves are sensed at 7.3 mV threshold 1.0 at 0 point fib millisecond impedance 418 Ohms. Conclusion:: 1. Successful uncomplicated explantation of depleted pulse generator 2. successful uncomplicated implantation of new dual-chamber pulse generator using the chronically implanted leads described above for ongoing treatment of symptomatic bradycardia with a P AFib in this 66-year-old patient. Cody Jerome MD [facility]
[2022-03-03 11:27] VITALS: BP 114/78; PULSE 62; RESP 18; TEMP 36.4; O2SAT 96
[2022-03-03 11:35] VITALS: BP 113/74; PULSE 60; RESP 12; O2SAT 98
--- NOTE | 2022-03-03 15:14 | SUR.PHASEII ---
1200--patient d/c instructions given with at bedside. written instructions given to take home. iv d/c tip intact. all questions and concerns address. dressing care instruction given and new prescription sent to pharmacy. abx instructions given.
--- NOTE | 2022-03-03 15:16 | SUR.PHASEII ---
message left for patient to follow up next week the for his incision check
== END 2022-03-03 12:10 | disposition home or self-care (01) ==
PROVIDERS: PCP Family Medicine; Visit Provider Specialist
PROC: 0JPT0PZ Removal of Cardiac Rhythm Related Device from Trunk Subcutaneous Tissue and Fascia, Open Approach (ICD-10-PCS; CPT 33228; principal; 2022-03-03 10:00)
DX: Z45.010 Encounter for checking and testing of cardiac pacemaker pulse generator [battery] (principal); I48.0 Paroxysmal atrial fibrillation; I42.9 Cardiomyopathy, unspecified; F31.9 Bipolar disorder, unspecified; Z86.73 Personal history of transient ischemic attack (TIA), and cerebral infarction without residual deficits
CPT/HCPCS: 33228; 36415; 80048; 85025; 85610; C1785; J0690; J2250; J3010; J7040

== ENCOUNTER 2023-02-08 12:06 | Emergency (ER) | payer MEDICARE, OTHER, SELFPAY ==
[2023-02-08 12:31] VITALS: BP 113/67; PULSE 61; RESP 16; TEMP 37; O2SAT 99
--- NOTE | 2023-02-08 12:33 | ED.GENADULT ---
HPI - General Adult General Chief complaint: Neuro Symptoms/Deficit Stated complaint: CONFUSION Source: patient, family and RN notes reviewed History of Present Illness HPI narrative: 67 yo M presents to urgent care with at side. Pt states he lost time this morning. states pt was seen normal at 07:50 am before she left for [employer]. When returned at 09:00, pt states he lost time while she was gone. Pt denies any falls, DESOUZA, dizziness, numbness, tingling, weakness. Denies any recent illness including N/V/D or fevers or chills. Pt reports hx of TIA. Related Data Home Medications Medication Instructions Recorded Confirmed lamotrigine 200 mg tablet 200 mg PO DAILY 04/03/20 11/21/22 lithium carbonate 300 mg capsule 600 mg PO BID 09/14/20 11/21/22 atorvastatin 20 mg tablet (Lipitor) 20 mg PO DAILY 11/12/20 11/21/22 aspirin 325 mg tablet 325 mg PO DAILY 11/26/20 11/21/22 terbinafine HCl 250 mg tablet 250 mg PO DAILY 02/08/23 02/08/23 Allergies Allergy/AdvReac Type Severity Reaction Status Date / Time No Known Allergies Allergy Unknown Verified 11/21/22 08:58 Review of Systems Review of Systems: CONSTITUTIONAL: Denies fever, chills, or sweats. EYES: Denies visual changes, redness, or discharge. ENT: Denies otalgia and sore throat CARDIOVASCULAR: Denies chest pain, palpitations, or edema. RESPIRATORY: Denies cough or dyspnea. GASTROINTESTINAL: Denies abdominal pain, nausea, vomiting, or diarrhea. GENITOURINARY: Denies dysuria or hematuria. SKIN: Denies rash or itching. MUSCULOSKELETAL: Denies back pain, joint pain, or myalgia. NEUROLOGIC: Denies headache, numbness, or weakness. reports episode of confusion earlier this morning. Pertinent positives per HPI. [facility] Past Medical History Medical History Afib Alcoholism Bipolar depression Cardiomyopathy CVA (cerebrovascular accident) Hernia Hyperthyroidism Levoscoliosis Normal colonoscopy (~03/2020) 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 Positive colorectal cancer screening using Cologuard test Vestibular schwannoma Surgical History Surgical History H/O knee surgery H/O ventral hernia repair History of arthroplasty of left knee History of arthroscopic knee surgery bilateral History of cardiac catheterization Family History Family History Other Cerebrovascular accident Family history of obesity Social History Social History Smoking status: Never smoker Second hand tobacco smoke exposure: Yes Alcohol intake: never Substance use: never Substance use type: does not use Living arrangements: with family Occupation/Education: retired Gender identity (if verbalized by the patient): Male Sexual Orientation (if Verbalized by the Patient): Straight or Heterosexual Spiritual care concerns: No Comments At the time of my signature, I reviewed and agree with the nursing past medical, surgical, social, and family history. There is no relevant family history pertinent to the patient complaint. Exam Narrative: GENERAL: This is a well-nourished, well-developed patient, in no apparent distress. HEAD: normocephalic, atraumatic. EYES: PERRL. Sclera clear/white. Vision is grossly intact. EARS: External ears normal, auditory canals clear and without drainage. Hearing grossly intact. NOSE: External nose normal with no obvious nasal discharge, nares without redness, no rhinorrhea. THROAT: Mucous membranes moist. NECK: Neck supple, non-tender without lymphadenopathy, masses or thyromegaly. CARDIOVASCULAR: Regular rate RESPIRATORY: No respiratory distress GASTROINTESTINAL: Abdomen soft, non-tender, nondistended. Bowel sounds are active. No hepato-splenomegaly, or palpable masses. No guarding. SKIN: warm, intact with
== END 2023-02-08 12:38 | disposition home or self-care (01) ==
PROVIDERS: Emergency Provider Nurse Practitioner Family; PCP Nurse Practitioner Family
DX: R41.0 Disorientation, unspecified (principal); I48.91 Unspecified atrial fibrillation; Z86.73 Personal history of transient ischemic attack (TIA), and cerebral infarction without residual deficits
CPT/HCPCS: 99212; G0463

== ENCOUNTER 2023-02-08 12:56 | Inpatient (IN) | payer MEDICARE, OTHER, SELFPAY ==
[2023-02-08] VITALS (10 sets, daily range): BP systolic 108–129; BP diastolic 63–80; PULSE 60–100; RESP 16–19; TEMP 36.1–36.8; O2SAT 62–100; BMI 22.2
--- NOTE | ~2023-02-08 | CT_ITS ---
EXAMINATION: CT brain wo con INDICATION: Transient alteration of awareness COMPARISON: 10/31/2020 TECHNIQUE: Standard unenhanced head CT. The dose-length product (DLP) was 605.33 mGy-cm. The mA was a djusted according to patient size. Iterative reconstruction technique was employed. FINDINGS: There is no acute intraparenchymal hemorrhage. No evidence of mass lesion. No evidence of a cute infarction. There is mild periventricular and subcortical hypodensity probably related to small vessel ischemic disease. There is mild prominence of the sulci and ventricles related to cerebral atr ophy. Intracranial calcified cerebral atherosclerosis is noted. There are no extra-axial collections. There is no mass effect or midline shift. The orbits and soft tissues are unremarkable. The visualiz ed sinuses and mastoid air cells are well aerated. IMPRESSION: 1. No acute intracranial abnormality. 2. Age related findings. Reviewed, dictated and finalized at location A.
--- NOTE | ~2023-02-08 | CT_ITS ---
CT ANGIOGRAM NECK AND HEAD History: TIA. Technique: Serial spiral axial images through the head and neck were obtained during arterial phase I V injection of 100 cc of Omnipaque 350. 3-D postprocessing and MIP images were then reconstructed on the remote workstation. Dose reduction technique was used on this scan by utilizing automated exposur e control and iterative reconstruction technique. The dose-length product (DLP) was 1191.88 mGy-cm. CTA neck findings: Bilateral vertebral arteries are patent. There is large calcified plaque at the p roximal left vertebral artery with mild to moderate stenosis in this region. Bilateral common carotid , internal carotid, and external carotid arteries are patent, without stenosis or occlusion. The prox imal right internal carotid artery demonstrates 0% stenosis relative to the normal distal artery lume n diameter. The proximal left internal carotid artery demonstrates 0% stenosis relative to the normal distal artery lumen diameter. CTA head findings: Distal vertebral arteries, basilar artery, and posterior cerebral arteries are pat ent. Distal internal carotid arteries, middle cerebral arteries, and anterior cerebral arteries are p atent. No stenosis, large vessel occlusion, or aneurysm. Impression: Mild to moderate stenosis the proximal left vertebral artery related to large calcified plaque. No other significant arterial abnormality seen. Reviewed, dictated and finalized at location M. Impression: Mild to moderate stenosis the proximal left vertebral artery related to large c alcified plaque. No other significant arterial abnormality seen.
--- NOTE | ~2023-02-08 | XR_ITS ---
EXAMINATION: XR chest 1V INDICATION: Transient alteration of awareness TECHNIQUE: PA view of the chest is obtained. COMPARISON: 02/22/2022 FINDINGS: The lungs are free of acute opacities. No pleural effusion or pneumothorax. The cardiomedia stinal silhouette is normal. Calcified pulmonary nodules are consistent with old granulomatous diseas e. A dual-lead cardiac pacemaker of the left chest wall ends with leads in expected locations. IMPRESSION: 1. No acute cardiopulmonary abnormality. Reviewed, dictated and finalized at location A.
--- NOTE | 2023-02-08 13:03 | ECG_ITS ---
Measurements Intervals [place] Rate: 60 P: 140 ND: 209 QRS: 57 QRSD: 109 T: 61 QT: 405 QTc: 406 Interpretive Statements ELECTRONIC ATRIAL PACEMAKER INCOMPLETE RIGHT BUNDLE BRANCH BLOCK DELAYED PRECORDIAL R/S TRANSITION BASELINE ARTIFACT- I, III, AVL BORDERLINE ECG COMPARED TO ECG 02/22/2022 17:53:53 ELECTRONIC ATRIAL PACEMAKER NOW PRESENT Electronically Signed On 02-08-2023 15:56:46 CDT by Colten Veliz D.O.
[2023-02-08 13:40] LABS: Basophils Absolute Auto 0.1 K/mm3 (0.0-0.1); Basophils Percent Auto 0.8 % (0.2-1.2); Eosinophils Absolute Auto 0.3 K/mm3 (0-0.3); Eosinophils Percent Auto 3.1 % (0-4.4); Hematocrit 42.7 % (42.0-52.0); Hemoglobin 13.7 g/dL (14.0-18.0); Immature Granulocyte Absolute 0.02 K/mm3 (0.00-0.031); Immature Granulocyte Percent A 0.2 % (0-0.5); Lymphocytes Absolute Auto 0.79 K/mm3 (0.9-3.2); Lymphocytes Percent Auto 9.4 % (18.3-44.2); Mean Corpuscular HGB Conc 32.1 g/dl (32-36); Mean Corpuscular Hemoglobin 30.1 pg (26-34); Mean Corpuscular Volume 93.8 fl (80-100); Mean Platelet Volume 10.2 fl (7.4-10.4); Monocytes Absolute Auto 0.4 K/mm3 (0.1-0.6); Monocytes Percent Auto 5.2 % (2.6-8.5); Neutrophils Absolute Auto 6.9 K/mm3 (1.3-6.7); Neutrophils Percent Auto 81.3 % (45.5-73.1); Platelet Count Result 248 k/mm3 (150-375); Red Blood Count 4.55 M/mm3 (4.6-6.20); Red Cell Distribution Width 13.1 % (11.5-14.5); White Blood Count 8.4 K/mm3 (4.5-10.0)
[2023-02-08 13:54] LABS: Alanine Aminotransferase 30 U/L (6-50); Albumin Level 4.4 g/dL (3.5-5.1); Alkaline Phosphatase 73 U/L (38-126); Anion Gap 5 mmol/L (8-16); Aspartate Amino Transferase 32 U/L (17-59); Bilirubin,Total 0.7 mg/dL (0.2-1.3); Blood Urea Nitrogen 19 mg/dL (9-20); Carbon Dioxide 29 mmol/L (22-30); Chloride 105 mmol/L (98-107); Estimated CRCL calculation 61 ml/min; Estimated Glomerular Filt Rate > 60; Glucose 100 mg/dL (65-110); Potassium 4.2 mmol/L (3.4-5.0); Sodium 139 mmol/L (137-145)
[2023-02-08 13:57] LABS: INR 1.1; Prothrombin Time 13.9 Seconds (11.1-14.7)
[2023-02-08 13:58] LABS: Partial Thromboplastin Time 36.3 SECONDS (22.3-36.8)
[2023-02-08 14:12] LABS: Troponin I < 0.012 ng/mL (0.000-0.034)
--- NOTE | 2023-02-08 16:12 | ED.NEUROSD ---
HPI - Neuro Symptoms/Deficit General Chief Complaint: Suspected CVA Stated Complaint: stroke s/s sent from urgent care Time Seen by Provider: 02/08/23 15:52 History of Present Illness HPI Narrative: Mychal Mckeon is a 67 y/o male who presents today with his . He reports of a history of a TIA about 2 years ago. Today at around 0750 his left him as she was going to denominational and he was getting ready to go to a meeting. He said then he felt confused, he describes this episode of being sort of aware, he did not recognize his couch, he stayed home and when his returned he felt that he had lost time . No evidence or memory of trauma/fall. Denies any shortness of breath/ chest pain/ fever/cough. Denies any numbness/tingling during event or now/ reports he might of had some blurry vision during event but nothing now. He believes this event might of lasted about 50 minutes. No loss of bowel or bladder. Related Data Home Medications Medication Instructions Recorded Confirmed lamotrigine 200 mg tablet 200 mg PO DAILY 04/03/20 02/08/23 lithium carbonate 300 mg capsule 600 mg PO BID 09/14/20 02/08/23 atorvastatin 20 mg tablet (Lipitor) 20 mg PO DAILY 11/12/20 02/08/23 aspirin 325 mg tablet 325 mg PO DAILY 11/26/20 02/08/23 terbinafine HCl 250 mg tablet 250 mg PO DAILY 02/08/23 02/08/23 Allergies Allergy/AdvReac Type Severity Reaction Status Date / Time No Known Allergies Allergy Unknown Verified 02/08/23 12:57 Review of Systems Review of Systems: CONSTITUTIONAL: Denies fever, chills, or sweats. EYES: Denies visual changes, redness, or discharge. ENT: Denies rhinorrhea, congestion, sore throat, or otalgia. CARDIOVASCULAR: Denies chest pain, palpitations, or edema. RESPIRATORY: Denies cough or dyspnea. GASTROINTESTINAL: Denies abdominal pain, nausea, vomiting, or diarrhea. GENITOURINARY: Denies dysuria or hematuria. SKIN: Denies rash or itching. MUSCULOSKELETAL: Denies back pain, joint pain, or myalgia. NEUROLOGIC: Denies headache, numbness, dizziness, or weakness. PSYCHIATRIC: Denies anxiety or depression. [facility] Past Medical History Medical History Afib Alcoholism Bipolar depression Cardiomyopathy CVA (cerebrovascular accident) Hernia Hyperthyroidism Levoscoliosis Normal colonoscopy (~03/2020) 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 Positive colorectal cancer screening using Cologuard test Vestibular schwannoma Surgical History Surgical History H/O knee surgery H/O ventral hernia repair History of arthroplasty of left knee History of arthroscopic knee surgery bilateral History of cardiac catheterization Family History Family History Other Cerebrovascular accident Family history of obesity Social History Social History Smoking status: Never smoker Second hand tobacco smoke exposure: Yes Alcohol intake: never Substance use: never Substance use type: does not use Living arrangements: with family Occupation/Education: retired Gender identity (if verbalized by the patient): Male Sexual Orientation (if Verbalized by the Patient): Straight or Heterosexual Spiritual care concerns: No Exam Narrative: GENERAL: Well-appearing, well-nourished, and in no acute distress. HEAD: Normocephalic, atraumatic. EYES: PERRLA and EOMI. ENT: Nares clear, no rhinorrhea or epistaxis. Mucous membranes moist. Oropharynx without tonsillar hypertrophy exudate or other lesions. NECK: Supple. No adenopathy or masses. No carotid bruits or JVD CHEST: Clear to auscultation. No respiratory distress. No wheezes rales or rhonchi HEART: Regular rate and rhythm. No murmur heard. Normal peripheral pulses. ABDOMEN: Soft, nontender, nondistended, normal active bowel sounds. EXTREMITIES: Normal range of motion.
--- NOTE | 2023-02-08 22:11 | ADMGEN ---
This patient, Mychal Mckeon, was admitted to 3 [facility] Surg Room 320-01. Patient/family oriented to hospital policies and general routines including ID bracelet, bed and alarms, visiting hours, pain management, procedures, bathroom and other care routines, personal items, smoking policy, room service/diet, and visiting hours. Information on how to activate the Rapid Response Team has been discussed. Patient/Family are encouraged to report perceived risks to care and to ask questions if they do not understand what they are told or what they should do. arrived [id number]
[2023-02-09] VITALS: PULSE 60
--- NOTE | 2023-02-09 | ECHO_ITS ---
Patient Info Name: Mychal Mckeon Age: 67 years : 1955 Gender: Male Ht: 66 in Wt: 137 lbs BSA: 1.70 m2 HR: 62 bpm BP: 102 / 57 mmHg Heart Rhythm: Sinus Rhythm Technical Quality: Good Exam Date: 02/09/2023 10:32 AM Exam Location: [facility] Pulmonary Patient Status: Inpatient Admit Date: 02/08/2023 Staff Ordering Physician: Jaron Hammonds Upper Stitcher: Lillian Pearson RDCS Attending Provider: Isabel Byrne MD Referring Physician: Cassius GARRETT; Exam Type: CA echo doppler w bubble study Study Info Indications - TIA, CVA SYMPTOMS Complete two-dimensional, color flow and Doppler transthoracic echocardiogram is performed with agitated saline. Contrast/Agitated Saline Contrast/Ag. Saline: Agitated Saline Amount: 30.00 ml Administered By: Petra Washington RDCS Existing IV Access: Yes IV Access Condition: patent with no signs of infiltration Summary 1. Mild concentric left ventricular hypertrophy with normal systolic and diastolic function. 2. Pacemaker leads noted. 3. No valvular dysfunction. 4. Excellent quality saline contrast exam negative for shunt. Left Ventricle Left ventricular chamber dimension is normal. Left ventricular systolic function is normal, estimated at 65-70%. There is mild concentric increased left ventricular wall thickness. The left ventricular diastolic function is normal. Right Ventricle Right ventricular chamber dimension is normal. Linear artifact in right ventricle suggestive of catheter(s), pacemaker lead(s), or ICD lead(s). Left Atria Left atrial chamber dimension is normal. Right Atria Right atrial chamber dimension is normal. Atrial Septum Intact interatrial septum visualized by agitated saline imaging. Aortic Valve The aortic valve is normal. Pulmonic Valve The pulmonic valve is normal. Mitral Valve The mitral valve has normal leaflets. Tricuspid Valve The tricuspid valve leaflets are normal. Pericardium/Pleural The pericardium appears normal. Aorta The aortic root size at the sinus of Valsalva is normal. Left Ventricular Outflow Tract Name Value Normal LVOT 2D LVOT Diameter 2.0 cm LVOT Doppler LVOT Peak Gradient 5 mmHg LVOT Mean Gradient 3 mmHg LVOT VTI 26 cm LVOT VTI/AV VTI Ratio 1.0 LVOT Stroke Volume 85 ml LVOT CO 5.2 l/min LVOT CI 3.0 l/min/m2 Pulmonic Valve Name Value Normal RVOT Doppler RVOT Peak Gradient 2 mmHg PV Doppler PV Peak Gradient 4 mmHg Mitral Valve ---
[2023-02-09 04:00] VITALS: PULSE 60
[2023-02-09 05:23] VITALS: BP 102/57; PULSE 61; RESP 16; TEMP 36.5; O2SAT 99
--- NOTE | 2023-02-09 06:52 | PM.IMHP ---
H&P: HPI History of Present Illness Date/Time: 02/09/23 06:52 Chief Complaint: Altered mental status Narrative: 67-year-old with past medical history significant for bipolar disorder, dyslipidemia presents to the emergency room after having episode of confusion and speech disturbance. Patient had been his usual state of health prior to this he presented to emergency room out of therapeutic window. At the time of my visit deficit had resolved patient stated he was back to his usual self and that he has had 1 more episode 10 years ago. CTA neck findings:? Bilateral vertebral arteries are patent. There is large calcified plaque at the proximal left vertebral artery with mild to moderate stenosis in this region. Bilateral common carotid, internal carotid, and external carotid arteries are patent, without stenosis or occlusion. The proximal right internal carotid artery demonstrates 0% stenosis relative to the normal distal artery lumen diameter. The proximal left internal carotid artery demonstrates 0% stenosis relative to the normal distal artery lumen diameter. CTA head findings: Distal vertebral arteries, basilar artery, and posterior cerebral arteries are patent. Distal internal carotid arteries, middle cerebral arteries, and anterior cerebral arteries are patent. No stenosis, large vessel occlusion, or aneurysm. Impression: Mild to moderate stenosis the proximal left vertebral artery related to large calcified plaque. No other significant arterial abnormality seen. Review of Systems Review of Systems: Episode of confusion, speech disturbance Constitutional: Constitutional: Denies chills, Denies fever(s), Denies malaise and Denies weakness Eyes: Eyes: Denies change in vision ENT: Denies dysphagia and Denies odynophagia Respiratory: Respiratory: Denies chest congestion, Denies cough and Denies pain on inspiration Gastrointestinal: Gastrointestinal: Denies abdominal pain, Denies dyspepsia, Denies heartburn, Denies diarrhea, Denies nausea and Denies vomiting Genitourinary: Genitourinary: Denies dysuria Musculoskeletal: Musculoskeletal: Denies back pain and Denies muscle weakness Integumentary/Breasts: Skin/Breast: Denies rash Neurologic: Reports focal weakness (Left-sided weakness) and Denies Sensory deficit (Neuro) Endocrine: Endocrine: Denies cold intolerance, Denies fatigue, Denies flushing, Denies heat intolerance, Denies polyphagia, Denies polydipsia and Denies palpitations Hematologic/Lymphatic: Hematologic/Lymphatic: Reports no additional hematologic/lymphatic complaints and Reports as per HPI Allergic/Immunologic: Allergic/Immunologic: Reports no additional allergic/immunologic complaints and Reports as per HPI [facility] Past Medical History Medical History Afib Alcoholism Bipolar depression Cardiomyopathy CVA (cerebrovascular accident) Hernia Hyperthyroidism Levoscoliosis Normal colonoscopy (~03/2020) 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 Positive colorectal cancer screening using Cologuard test Vestibular schwannoma Surgical History Surgical History H/O knee surgery H/O ventral hernia repair History of arthroplasty of left knee History of arthroscopic knee surgery bilateral History of cardiac catheterization Family History Family History Other Cerebrovascular accident Family history of obesity Social History Social History Smoking status: Never smoker Second hand tobacco smoke exposure: No Alcohol intake: never Substance use: never Substance use type: does not use Lack of Transportation: No Lack of Food: Never True Current Housing: I Have Housing Concerned About Future Housing: No Difficulty Paying Gas/Electric Bills: No Difficulty Paying for Meds: No Currently Unemp
--- NOTE | 2023-02-09 07:58 | P.PNIM_ITS ---
Progress Note: A&P Assessment and Plan (1) Cardiomyopathy: Code(s): I42.9 - Cardiomyopathy, unspecified Status: Acute Assessment and Plan: * Noted to have and EF of 35% with good functional status * Repeat echo ordered * Follow outpatient with cardiology * Continue home medication aspirin * Pace maker present (2) Bipolar depression: Code(s): F31.9 - Bipolar disorder, unspecified Status: Acute Assessment and Plan: * Stable and chronic * Continue lithium * Check a lithium level, confusion could be related to toxicity * Adjust accordingly (3) TIA (transient ischemic attack): Code(s): G45.9 - Transient cerebral ischemic attack, unspecified Status: Acute Assessment and Plan: * Patient presented with complaints of confusion, and speech disturbance * Does have a history of TIA * Symptoms resolved * CTA of the head and neck, 0% stenosis bilaterally, no acute problems noted * Not able to be MRI related to pacemaker * Echo with bubble ordered * Neurology consulted * Continue aspirin, atorvastatin * Check lipid panel (4) Acute metabolic encephalopathy: Code(s): G93.41 - Metabolic encephalopathy Status: Acute Assessment and Plan: * Resolved * Complaints upon presentation * lithium level ordered * TIA/CVA workup in process * Most like related to one above * Trend mental status Time Spent With Patient Time: 51 minutes Time with patient: Greater than 35 minutes Subjective Date/time seen: 02/09/23 07:58 Interval history: 02/10/23 02/09/23? 06:52 67-year-old with past medical history significant for bipolar disorder, dyslipidemia presents to the emergency room after having episode of confusion and speech disturbance.? Patient had been his usual state of health prior to this he presented to emergency room out of therapeutic window.? At the time of my visit deficit had resolved patient stated he was back to his usual self and that he has had 1 more episode 10 years ago. Review of Systems Review of Systems: All systems reviewed & are unremarkable except as noted in HPI and below Exam Narrative: General: well-nourished, well-appearing 67-year-old male, sitting up in bed, comfortable, NARD Neuro: awake, alert and oriented x4, speech clear, no focal neuro deficits noted HEENMT: normocephalic, atraumatic, EOMI, sclerae anicteric, moist oral mucosa Respiratory: Clear to auscultation bilaterally without crackles, rhonchi or wheezes, nonlabored breathing Cardio: regular rate, regular rhythm with S1-S2 Abdomen: nondistended, normoactive bowel sounds, soft, nontender to palpation Extremities: no edema, erythema, or tenderness to palpation, DP pulses 2+ bilaterally Skin: no rashes or lesions, warm and dry Psych: appropriate mood and affect, judgment and insight intact Objective Data Vital Signs Vital Signs: Vital Signs - 24 hr 02/08/23 13:17 02/08/23 15:57 02/08/23 15:57 Temperature 98.2 F Pulse Rate 62 64 63 Respiratory Rate 18 18 Blood Pressure 108/76 129/77 Pulse Oximetry 98 100 Oxygen Delivery Room Air 02/08/23 15:58 02/08/23 18:42 02/08/23 15:56 Temperature Pulse R
--- NOTE | 2023-02-09 07:58 | PM.IMPN ---
Progress Note: A&P Assessment and Plan (1) Cardiomyopathy: Code(s): I42.9 - Cardiomyopathy, unspecified Status: Acute Assessment and Plan: Noted to have and EF of 35% with good functional status Repeat echo ordered Follow outpatient with cardiology Continue home medication aspirin Pace maker present (2) Bipolar depression: Code(s): F31.9 - Bipolar disorder, unspecified Status: Acute Assessment and Plan: Stable and chronic Continue lithium Check a lithium level, confusion could be related to toxicity Adjust accordingly (3) TIA (transient ischemic attack): Code(s): G45.9 - Transient cerebral ischemic attack, unspecified Status: Acute Assessment and Plan: Patient presented with complaints of confusion, and speech disturbance Does have a history of TIA Symptoms resolved CTA of the head and neck, 0% stenosis bilaterally, no acute problems noted Not able to be MRI related to pacemaker Echo with bubble ordered Neurology consulted Continue aspirin, atorvastatin Check lipid panel (4) Acute metabolic encephalopathy: Code(s): G93.41 - Metabolic encephalopathy Status: Acute Assessment and Plan: Resolved Complaints upon presentation lithium level ordered TIA/CVA workup in process Most like related to one above Trend mental status Time Spent With Patient Time: 51 minutes Time with patient: Greater than 35 minutes Subjective Date/time seen: 02/09/23 07:58 Interval history: 02/10/23 02/09/23? 06:52 67-year-old with past medical history significant for bipolar disorder, dyslipidemia presents to the emergency room after having episode of confusion and speech disturbance.? Patient had been his usual state of health prior to this he presented to emergency room out of therapeutic window.? At the time of my visit deficit had resolved patient stated he was back to his usual self and that he has had 1 more episode 10 years ago. Review of Systems Review of Systems: All systems reviewed & are unremarkable except as noted in HPI and below Exam Narrative: General: well-nourished, well-appearing 67-year-old male, sitting up in bed, comfortable, NARD Neuro: awake, alert and oriented x4, speech clear, no focal neuro deficits noted HEENMT: normocephalic, atraumatic, EOMI, sclerae anicteric, moist oral mucosa Respiratory: Clear to auscultation bilaterally without crackles, rhonchi or wheezes, nonlabored breathing Cardio: regular rate, regular rhythm with S1-S2 Abdomen: nondistended, normoactive bowel sounds, soft, nontender to palpation Extremities: no edema, erythema, or tenderness to palpation, DP pulses 2+ bilaterally Skin: no rashes or lesions, warm and dry Psych: appropriate mood and affect, judgment and insight intact Objective Data Vital Signs Vital Signs: Vital Signs - 24 hr 02/08/23 13:17 02/08/23 15:57 02/08/23 15:57 Temperature 98.2 F Pulse Rate 62 64 63 Respiratory Rate 18 18 Blood Pressure 108/76 129/77 Pulse Oximetry 98 100 Oxygen Delivery Room Air 02/08/23 15:58 02/08/23 18:42 02/08/23 15:56 Temperature Pulse Rate 63 60 65 Respiratory Rate 18 18 17 Blood Pressure 129/77 124/73 129/77 Pulse Oximetry 100 100 100 Oxygen Delivery 02/08/23 16:01 02/08/23 20:15 02/08/23 21:37 Temperature Pulse Rate 62 100 60 Respiratory Rate 19 16 16 Blood Pressure 120/77 118/70 118/80 Pulse Oximetry 100 98 97 Oxygen Delivery 02/08/23 22:45 02/08/23 23:48 02/09/23 00:00 Temperature 96.9 F L Pulse Rate 99 99 60 Respiratory Rate 16 16 Blood Pressure 122/63 Pulse Oximetry 62 L 62 L Oxygen Delivery Room Air 02/09/23 04:00 02/09/23 05:23 Temperature 97.7 F Pulse Rate 60 61 Respiratory Rate 16 Blood Pressure 102/57 L Pulse Oximetry 99 Oxygen Delivery Intake/Output Intake/Output: Intake & Outpu
[2023-02-09 08:00] VITALS: PULSE 61; RESP 16; O2SAT 99
[2023-02-09 08:49] LABS: Cholesterol 153 mg/dL (0-200); HDL Direct 58 mg/dL; Triglycerides 48 mg/dL (<150)
[2023-02-09 08:55] LABS: Lithium 0.6 mmol/L (0.6-1.2)
[2023-02-09 09:00] LABS: LDL Cholesterol Direct 69 mg/dL
[2023-02-09] MEDS: LITHIUM CARBONATE 300 MG CAPSULE 600 MG PO (09:42)
--- NOTE | 2023-02-09 09:54 | WPDNEURCNPN ---
Assessment and Plan Assessment and plan (1) Acute metabolic encephalopathy: Code(s): G93.41 - Metabolic encephalopathy Status: Acute (2) TIA (transient ischemic attack): Code(s): G45.9 - Transient cerebral ischemic attack, unspecified Status: Acute (3) Speech disturbance: Code(s): R47.9 - Unspecified speech disturbances Status: Acute (4) Afib: Code(s): I48.91 - Unspecified atrial fibrillation Status: Inactive Plan Mychal Mckeon is a 67 year old male with a history of atrial fibrillation, prior TIA/stroke, bipolar disorder, hyperthyroidism, cardiac pacemaker, vestibular schwannoma who presented due to change in his mental status. Concern for possible TIA/stroke vs seizure. Unable to do MRI brain during this admission due to pacemaker. - Continue daily Aspirin for now - Would try to get MRI brain as outpatient at a facility that has pacemaker compatibility -- if there is a new stroke, he should be restarted on anticoagulation - EEG is pending - Surface echo pending - Continue Lipitor 20mg daily Consult date: 02/09/23 Reason for consult: Transient encephalopathy HPI: Mychal Mckeon is a 67 year old male with a history of atrial fibrillation, prior TIA/stroke, bipolar disorder, hyperthyroidism, cardiac pacemaker, vestibular schwannoma who presented due to change in his mental status. Patient's reports that the patient's LKW was about 7-8AM on 02/08 when she left for mormonism. When she returned, patient reported that he had lost time' while she was gone. He believes that the event lasted about 50 minutes. Patient denies any history of seizure. he said he felt confused, but was aware and could not reocgonize his couch. Patient was brought into [facility]. His blood pressure on arrival was in the 110s systolic. He was completely back to baseline when evaluated in the ED. CT head showed no acute changes. CTA brain/carotid showed mild to moderate stenosis of the proximal left vertebral artery. Due to patient's pacemaker, MRI brain cannot be obtained during this admission. His lithium level was 0.6. He takes Aspirin and Lipitor 20mg daily. his LDL is 69 from this admission. Patient sees Dr. Clark as his manager summer. 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 He had previously on Xarelto, but due to cost and the fact that he hadn't had an atrial arrhythmia in a while, he was switched to aspirin. Review of Systems Constitutional: Constitutional: Reports no additional constitutional complaints Eyes: Eyes: Reports no additional eye complaints ENT: Reports system reviewed and no additional complaints, except as documented Cardiovascular: Cardiovascular: Reports no additional cardiovascular complaints Respiratory: Respiratory: Reports no additional respiratory complaints Gastrointestinal: Gastrointestinal: Reports no additional gastrointestinal complaints Genitourinary: Genitourinary: Reports no additional male genitourinary complaints Musculoskeletal: Musculoskeletal: Reports no additional musculoskeletal complaints Integumentary/Breasts: Skin/Breast: Reports system reviewed and no additional complaints, except as docu Neurologic: Reports confusion Psychiatric: Psychiatric: Reports confusion PMFSH Past Medical History Medical History Afib Alcoholism Bipolar depression Cardiomyopathy CVA (cerebrovascular accident) Hernia Hyperthyroidism Levoscoliosis Normal colonoscopy (~03/2020) 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
--- NOTE | 2023-02-09 10:30 | P.DS_ITS ---
DS: Admitting Diagnosis Discharge Date 02/09/23 1030 Admitting Diagnosis TIA DS: Discharge Diagnosis Discharge Diagnosis (1) Cardiomyopathy: Code(s): I42.9 - Cardiomyopathy, unspecified Status: Acute Assessment and Plan: * Noted to have and EF of 35% with good functional status * Repeat echo ordered * Follow outpatient with cardiology * Continue home medication aspirin * Pace maker present (2) Bipolar depression: Code(s): F31.9 - Bipolar disorder, unspecified Status: Acute Assessment and Plan: * Stable and chronic * Continue lithium * Check a lithium level, confusion could be related to toxicity * Cranston 0.6 * Adjust accordingly (3) TIA (transient ischemic attack): Code(s): G45.9 - Transient cerebral ischemic attack, unspecified Status: Acute Assessment and Plan: * Patient presented with complaints of confusion, and speech disturbance * Does have a history of TIA * Symptoms resolved * CTA of the head and neck, 0% stenosis bilaterally, no acute problems noted * Not able to be MRI related to pacemaker * Echo with bubble pending read * Neurology consulted thank you for your help * Continue aspirin, atorvastatin, consider plavix * lipid panel triglycerides 48, cholesterol 153, LDL 69, HDL 58 (4) Acute metabolic encephalopathy: Code(s): G93.41 - Metabolic encephalopathy Status: Acute Assessment and Plan: * Resolved * Complaints upon presentation * lithium level 0.6 * TIA/CVA workup in process * Most like related to one above * Trend mental status DS: Summary Hospital Course Hospital Course: Patient is 67-year-old male with past medical history of bipolar disorder, hyperlipidemia who presented the ED with complaints confusion. Patient stated that he just got confused and lost 40 minutes of his life. He did have an episode like this in the past however he stated that he it has not happened anymore. CT of the head and neck did show [id number] stenosis of the left vertebral artery and large calcified plaque however no significant abnormalities seen. Lipid panel was stable. Echo has been obtained and was read as normal systolic and diastolic function, with no shunt. Cranston was 0.6. Will start patient on plavix and he will need to get an outpatient MRI at some point. Labs and vital signs are stable and patient is stable for discharge at this time. He currently feels better, and is wanting to go home. He will need to follow up with neurology in 3-4 months. Status at Discharge Functional status at discharge: independent ambulation Overall status at discharge: patient is progressing back to baseline Time Spent with Patient Time attestation: Total time spent providing and/or coordinating discharge services:48 minutes Time spent: Greater than 30 minutes Specific discharge activities: Diagnostic testing, chart review, developing a treatment plan, education, care coordination documentation, physical exam, result review Exam Narrative: General: well-nourished, well-appearing 67-year-old male, sitting up in bed, comfortable, NARD Neuro: awake, alert and oriented x4, speech clear, no focal neuro deficits noted HEENMT: normocephalic, atraumatic, EOMI, sclerae anicteric, moist oral mucosa Respiratory: Clear to auscultation bilaterally without crackles, rhonchi or wheezes, nonlabored breathing Cardio: regular rate,
--- NOTE | 2023-02-09 10:30 | PM.DS ---
DS: Admitting Diagnosis Discharge Date 02/09/23 1030 Admitting Diagnosis TIA DS: Discharge Diagnosis Discharge Diagnosis (1) Cardiomyopathy: Code(s): I42.9 - Cardiomyopathy, unspecified Status: Acute Assessment and Plan: Noted to have and EF of 35% with good functional status Repeat echo ordered Follow outpatient with cardiology Continue home medication aspirin Pace maker present (2) Bipolar depression: Code(s): F31.9 - Bipolar disorder, unspecified Status: Acute Assessment and Plan: Stable and chronic Continue lithium Check a lithium level, confusion could be related to toxicity Heber-Overgaard 0.6 Adjust accordingly (3) TIA (transient ischemic attack): Code(s): G45.9 - Transient cerebral ischemic attack, unspecified Status: Acute Assessment and Plan: Patient presented with complaints of confusion, and speech disturbance Does have a history of TIA Symptoms resolved CTA of the head and neck, 0% stenosis bilaterally, no acute problems noted Not able to be MRI related to pacemaker Echo with bubble pending read Neurology consulted thank you for your help Continue aspirin, atorvastatin, consider plavix lipid panel triglycerides 48, cholesterol 153, LDL 69, HDL 58 (4) Acute metabolic encephalopathy: Code(s): G93.41 - Metabolic encephalopathy Status: Acute Assessment and Plan: Resolved Complaints upon presentation lithium level 0.6 TIA/CVA workup in process Most like related to one above Trend mental status DS: Summary Hospital Course Hospital Course: Patient is 67-year-old male with past medical history of bipolar disorder, hyperlipidemia who presented the ED with complaints confusion. Patient stated that he just got confused and lost 40 minutes of his life. He did have an episode like this in the past however he stated that he it has not happened anymore. CT of the head and neck did show [id number] stenosis of the left vertebral artery and large calcified plaque however no significant abnormalities seen. Lipid panel was stable. Echo has been obtained and was read as normal systolic and diastolic function, with no shunt. Heber-Overgaard was 0.6. Will start patient on plavix and he will need to get an outpatient MRI at some point. Labs and vital signs are stable and patient is stable for discharge at this time. He currently feels better, and is wanting to go home. He will need to follow up with neurology in 3-4 months. Status at Discharge Functional status at discharge: independent ambulation Overall status at discharge: patient is progressing back to baseline Time Spent with Patient Time attestation: Total time spent providing and/or coordinating discharge services:48 minutes Time spent: Greater than 30 minutes Specific discharge activities: Diagnostic testing, chart review, developing a treatment plan, education, care coordination documentation, physical exam, result review Exam Narrative: General: well-nourished, well-appearing 67-year-old male, sitting up in bed, comfortable, NARD Neuro: awake, alert and oriented x4, speech clear, no focal neuro deficits noted HEENMT: normocephalic, atraumatic, EOMI, sclerae anicteric, moist oral mucosa Respiratory: Clear to auscultation bilaterally without crackles, rhonchi or wheezes, nonlabored breathing Cardio: regular rate, regular rhythm with S1-S2 Abdomen: nondistended, normoactive bowel sounds, soft, nontender to palpation Extremities: no edema, erythema, or tenderness to palpation, DP pulses 2+ bilaterally Skin: no rashes or lesions, warm and dry Psych: appropriate mood and affect, judgment and insight intact DS: Data Data Completed and Pending Labs on day of discharge: Labs from last 24 hours 02/09/23 02/09/23 08:20 08:20 Triglycerides 48 Cholesterol 153 LDL Cholesterol Direct 69 HDL Direc
[2023-02-09 14:00] VITALS: BP 114/63; PULSE 64; RESP 18; TEMP 36.4; O2SAT 100
--- NOTE | 2023-02-10 10:06 | WPDNEUROLOGY ---
Neurology EEG Report General Information Date of Study: 02/09/23 TEST Routine EEG DIAGNOSIS Altered mental status CONDITION OF RECORDING Awake, drowsy, asleep EEG NUMBER [id number] CLINICAL HISTORY Patient had an episode described as he lost time and then felt confused afterwards. The episode was unwitnessed. No prior history of seizures. EEG DESCRIPTION During the awake state with eyes closed the background consists of 8 Hz posterior dominant rhythm which attenuates appropriately with eye opening. The recording is continuous. There is a well developed anterior-posterior gradient. No significant asymmetries of background activities are noted. With drowsiness there is waxing and waning of the dominant rhythm with eventual replacement by a mixture of beta, alpha, and theta activity. As the patient enters stage II sleep, symmetrical spindles are present. Arousal is unremarkable. There are no epileptiform discharges or seizures during this recording. Hyperventilation and photic stimulation were not performed. IMPRESSION This is a normal routine EEG recorded in awake, drowsy, and asleep states. There are no electrographic seizures identified, nor are there any epileptiform discharges. Please note that a normal EEG cannot exclude a seizure disorder. Clinical correlation is recommended.
--- NOTE | 2023-03-09 20:41 | ED.NEUROSD ---
HPI - Neuro Symptoms/Deficit General Chief Complaint: Suspected CVA Stated Complaint: stroke s/s sent from urgent care Time Seen by Provider: 02/08/23 15:52 Related Data Home Medications Medication Instructions Recorded Confirmed lamotrigine 200 mg tablet 200 mg PO DAILY 04/03/20 02/08/23 lithium carbonate 300 mg capsule 600 mg PO BID 09/14/20 02/08/23 atorvastatin 20 mg tablet (Lipitor) 20 mg PO DAILY 11/12/20 02/08/23 aspirin 325 mg tablet 325 mg PO DAILY 11/26/20 02/08/23 terbinafine HCl 250 mg tablet 250 mg PO DAILY 02/08/23 02/08/23 Allergies Allergy/AdvReac Type Severity Reaction Status Date / Time No Known Allergies Allergy Unknown Verified 02/08/23 22:17 [facility] Past Medical History Medical History Afib Alcoholism Bipolar depression Cardiomyopathy CVA (cerebrovascular accident) Hernia Hyperthyroidism Levoscoliosis Normal colonoscopy (~03/2020) 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 Positive colorectal cancer screening using Cologuard test Vestibular schwannoma Surgical History Surgical History H/O knee surgery H/O ventral hernia repair History of arthroplasty of left knee History of arthroscopic knee surgery bilateral History of cardiac catheterization Family History Family History Other Cerebrovascular accident Family history of obesity Social History Social History Smoking status: Never smoker Second hand tobacco smoke exposure: No Alcohol intake: never Substance use: never Substance use type: does not use Lack of Transportation: No Lack of Food: Never True Current Housing: I Have Housing Concerned About Future Housing: No Difficulty Paying Gas/Electric Bills: No Difficulty Paying for Meds: No Currently Unemployed: No Education: Bachelor's Degree Difficulty w/ Childcare or Family Care: No Living arrangements: with family Occupation/Education: retired Gender identity (if verbalized by the patient): Male Sexual Orientation (if Verbalized by the Patient): Straight or Heterosexual Spiritual care concerns: No Course Vital Signs Vital signs: Vital Signs Temperature 36.8 C 02/08/23 13:17 Pulse Rate 62 03/26/23 13:17 Respiratory Rate 18 02/08/23 13:17 Blood Pressure 108/76 02/08/23 13:17 Pulse Oximetry 98 02/08/23 13:17 Oxygen Delivery Room Air 02/08/23 13:17 Temperature 36.4 C L 02/09/23 14:00 Pulse Rate 64 02/09/23 14:00 Respiratory Rate 18 02/09/23 14:00 Blood Pressure 114/63 02/09/23 14:00 Pulse Oximetry 100 02/09/23 14:00 Oxygen Delivery Room Air 02/09/23 08:00 MDM - Neuro Symptoms/Deficit Lab Data 02/08/23 13:30 02/08/23 13:30 Labs: Lab Results 02/08/23 02/08/23 02/08/23 Range/Units 13:30 13:30 13:30 WBC 8.4 (4.5-10.0) K/mm3 RBC 4.55 L (4.6-6.20) M/mm3 Hgb 13.7 L (14.0-18.0) g/dL Hct 42.7 (42.0-52.0) % MCV 93.8 (80-100) fl MCH 30.1 (26-34) pg MCHC 32.1 (32-36) g/dl RDW 13.1 (11.5-14.5) % Plt Count 248 (150-375) k/mm3 MPV 10.2 (7.4-10.4) fl Immature Gran % (Auto) 0.2 (0-0.5) % Neut % (Auto) 81.3 H (45.5-73.1) % Lymph % (Auto) 9.4 L (18.3-44.2) % [place] % (Auto) 5.2 (2.6-8.5) % Eos % (Auto) 3.1 (0-4.4) % Baso % (Auto) 0.8 (0.2-1.2) % Lymph # (Auto) 0.79 L (0.9-3.2) K/mm3 [place] # (Auto) 0.4 (0.1-0.6) K/mm3 Eos # (Auto) 0.3 (0-0.3) K/mm3 Baso # (Auto) 0.1 (0.0-0.1) K/mm3 Abs Immat Gran (auto) 0.02 (0.00-0.031) K/mm3 Absolute Neuts (auto) 6.9 H (1.3-6.7) K/mm3 Absolute Nucleated RBC 0.0 (0.0-0.012) K/mm3 Nucleated RBC % 0.0 (0.0-0.2) % PT 13.9 (11.1-14.7) Seconds INR 1.1 APTT 36.3 (22.3-36.8) SECONDS Sodium 139 (137-145)
== END 2023-02-09 15:15 | disposition home or self-care (01) | DRG 69 ==
LOC: ANHED 20:43 → ANH3MEDSUR 22:12
PROVIDERS: Preventive Medicine Aerospace Medicine; Admitting Provider Internal Medicine; Emergency Provider Nurse Practitioner Family; PCP Nurse Practitioner Family; Visit Provider Nurse Practitioner
DX: G45.9 Transient cerebral ischemic attack, unspecified (principal); G93.41 Metabolic encephalopathy; I42.9 Cardiomyopathy, unspecified; F31.9 Bipolar disorder, unspecified; E78.5 Hyperlipidemia, unspecified; D33.3 Benign neoplasm of cranial nerves; Z95.0 Presence of cardiac pacemaker; Z79.02 Long term (current) use of antithrombotics/antiplatelets
CPT/HCPCS: 36415; 70450; 70496; 70498; 71045; 80053; 80061; 80178; 84484; 85025; 85610; 85730; 93005; 93306; 95816; 96375; 99212; 99285; A9270; G0463; Q9967

== ENCOUNTER → 2023-09-02 08:14 | Outpatient (CLI) | payer MEDICARE, OTHER, SELFPAY ==
--- NOTE | ~2023-09-02 | US_ITS ---
Ultrasound of the Abdominal Aorta INDICATION: Abdominal aortic aneurysm TECHNIQUE: Grayscale, color Doppler, and pulsed Doppler images of the aorta and common iliac arteries were obtained. COMPARISON: None. FINDINGS: Maximum vascular dimensions are as follows: Proximal aorta: 2.9 cm Mid aorta: 2.2 cm Distal aorta: 2.1 cm Right common iliac artery: 1.3 cm Left common iliac artery: 1.4 cm There is no evidence of abdominal aortic aneurysm. IMPRESSION: No abdominal aortic aneurysm. Reviewed, dictated and finalized at location M.
== END ==
PROVIDERS: PCP Nurse Practitioner Family; Visit Provider Nurse Practitioner Family
DX: Z13.6 Encounter for screening for cardiovascular disorders (principal)
CPT/HCPCS: 76706

== ENCOUNTER 2024-02-11 04:02 | Emergency (ER) | payer MEDICARE, OTHER, SELFPAY ==
[2024-02-11 04:05] VITALS: BP 134/68; PULSE 73; RESP 18; TEMP 36.2; O2SAT 100
--- NOTE | 2024-02-11 04:32 | ED.EXTPRO ---
HPI - Extremity Problem General Chief complaint: Extremity Problem,Nontraumatic Stated complaint: i got a blood clot Time Seen by Provider: 02/11/24 04:37 History of Present Illness HPI Narrative: Patient is a pleasant 68-year-old male who presents to the emergency department this morning after being sent in from Urgent Care due to concern for DVT. Patient is that he has been having some left calf pain and swelling which he has noticed in the past 2 days. Patient denies any history of DVTs. He denies any recent falls or trauma and is currently denying any additional symptoms. There are no other modifying, alleviating, or precipitating factors at this time. Related Data Home Medications Medication Instructions Recorded Confirmed lamotrigine 200 mg tablet 200 mg PO DAILY 04/03/20 02/08/23 lithium carbonate 300 mg capsule 600 mg PO BID 09/14/20 02/08/23 atorvastatin 20 mg tablet (Lipitor) 20 mg PO DAILY 11/12/20 02/08/23 aspirin 325 mg tablet 325 mg PO DAILY 11/26/20 02/08/23 terbinafine HCl 250 mg tablet 250 mg PO DAILY 02/08/23 02/08/23 Allergies Allergy/AdvReac Type Severity Reaction Status Date / Time No Known Allergies Allergy Unknown Verified 02/08/23 22:17 Review of Systems Review of Systems: All systems are reviewed and are negative unless stated otherwise in the HPI. 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 Positive colorectal cancer screening using Cologuard test Vestibular schwannoma Surgical History Surgical History H/O knee surgery H/O ventral hernia repair History of arthroplasty of left knee History of arthroscopic knee surgery bilateral History of cardiac catheterization Family History Family History Other Cerebrovascular accident Family history of obesity Social History Social History Smoking status: Never smoker Second hand tobacco smoke exposure: No Alcohol intake: never Substance use: never Substance use type: does not use Lack of Transportation: No Lack of Food: Never True Current Housing: I Have Housing Concerned About Future Housing: No Difficulty Paying Gas/Electric Bills: No Difficulty Paying for Meds: No Currently Unemployed: No Education: Bachelor's Degree Difficulty w/ Childcare or Family Care: No Living arrangements: with family Occupation/Education: retired Gender identity (if verbalized by the patient): Male Sexual Orientation (if Verbalized by the Patient): Straight or Heterosexual Spiritual care concerns: No Exam Narrative: General: Alert, awake, afebrile, in no acute distress. HEENT: PERRL, no rhinorrhea, no post nasal drip, oropharynx clear. Neck: Trachea midline, no JVD, no lymphadenopathy. Cardiovascular: Regular rate and rhythm, no murmurs, rubs or gallops, no peripheral edema. Respiratory: Clear to auscultation bilaterally, no tachypnea, no wheezing, no rhonchi, no rubs, no respiratory distress. Abdomen: Soft, nontender, nondistended, no rebound, no guarding, no peritoneal signs. Musculoskeletal: Left lower extremity calf tenderness and swelling around the calf region which is noticeably larger than the right calf concerning for DVT. Skin: No rashes or petechia, no signs of infection. Psychiatric: Alert and oriented, normal behavior and judgment for situation. Neurological: Alert and oriented to person, place, and time. Follows all commands. No focal deficits, speech is clear and fluent. Course Vital Signs Vital signs: Vital Signs Temperature 97.2 F L 02/11/24 04:05 Pulse Rate 73 02/11/24 04:05 Respi
[2024-02-11 04:53] VITALS: BP 123/77; PULSE 64; RESP 15; O2SAT 98
== END 2024-02-11 04:55 | disposition home or self-care (01) ==
PROVIDERS: Emergency Provider Emergency Medicine; PCP Nurse Practitioner Family
DX: M79.662 Pain in left lower leg (principal); I48.91 Unspecified atrial fibrillation; I42.9 Cardiomyopathy, unspecified; E05.90 Thyrotoxicosis, unspecified without thyrotoxic crisis or storm; F31.9 Bipolar disorder, unspecified; Z95.0 Presence of cardiac pacemaker; Z96.652 Presence of left artificial knee joint; Z86.73 Personal history of transient ischemic attack (TIA), and cerebral infarction without residual deficits; Z79.82 Long term (current) use of aspirin
CPT/HCPCS: 99281

== ENCOUNTER 2024-02-11 07:10 | Outpatient (CLI) | payer MEDICARE, OTHER, SELFPAY ==
--- NOTE | ~2024-02-11 | US_ITS ---
EXAMINATION:US venous doppler LE LT INDICATION:Left lower leg pain TECHNIQUE: Multiple grayscale, color flow and Doppler images of the left lower extremity deep venous systems were obtained and reviewed. COMPARISON:No prior studies for comparison. FINDINGS: The common femoral, superficial femoral and popliteal veins demonstrate normal respiratory variation, augmentation and compressibility. Color flow is also seen within the posterior tibial, pe roneal, greater saphenous and profunda veins. IMPRESSION: 1: No lower extremity deep venous thrombosis. Reviewed, dictated and finalized at location L.
== END 2024-02-11 07:11 | disposition home or self-care (01) ==
PROVIDERS: PCP Nurse Practitioner Family; Visit Provider Emergency Medicine
DX: M79.662 Pain in left lower leg (principal)
CPT/HCPCS: 93971; 99281